=== PATIENT | female | born 1950 | race Two or more races ===

== ENCOUNTER 2023-07-12 09:29 | Emergency (ER) | payer OTHER ==
[~2023-07-12] VITALS: Ht 160 cm; Wt 91.0 kg
[2023-07-12 10:06] VITALS: BP 137/63; PULSE 101; RESP 15; TEMP 97.2; O2SAT 97
[2023-07-12] MEDS: methylPREDNISolone SOD SUCC 125 MG/2 ML VL IM ONE (10:45)
[2023-07-12] MEDS: HYDROcodone-ACET 5/325MG TAB PO ONE (10:45)
[2023-07-12] MEDS ORDERED: NAPR-746 PO (10:58)
[2023-07-12] MEDS ORDERED: HYDR-4902 PO (10:58)
== END 2023-07-12 11:03 | disposition home or self-care (01) ==
LOC: ER 09:29
DX: M50.10 Cervical disc disorder with radiculopathy, unspecified cervical region (principal)
CPT/HCPCS: 72040; 96372; 99283; J2930